=== PATIENT | male | born 1975 | race Caucasian/White ===

== ENCOUNTER 2020-12-05 17:55 | Emergency (ER) | payer BC ==
[2020-12-05 18:09] VITALS: BP 129/85; PULSE 68; TEMP 98.3; BMI 30.1
[2020-12-05] MEDS ORDERED: RABIES IMMUNE GLOBULIN 300 UNITS/1 ML VIAL IM ONE (18:09)
[2020-12-05] MEDS ORDERED: RABIES VACCINE (PCEC)/PF 2.5 UNIT/VIAL IM ONE ×2 (18:14→18:16)
[2020-12-05] MEDS ORDERED: RABIES IMMUNE GLOBULIN 300 UNITS/1 ML VIAL ONE (18:17)
== END 2020-12-05 19:00 | disposition home or self-care (01) ==
LOC: FER 17:55
PROC: 3E0234Z Introduction of Serum, Toxoid and Vaccine into Muscle, Percutaneous Approach (ICD-10-PCS; principal; 2020-12-05)
PROC: 3E0234Z Introduction of Serum, Toxoid and Vaccine into Muscle, Percutaneous Approach (ICD-10-PCS; 2020-12-05)
DX: S71.152A Open bite, left thigh, initial encounter (principal); Z29.14 Encounter for prophylactic rabies immune globulin; Z23 Encounter for immunization
CPT/HCPCS: 90375; 90675; 99284-25

== ENCOUNTER 2020-12-08 19:43 | Emergency (ER) | payer BC ==
[2020-12-08 19:51] VITALS: BP 127/87; PULSE 90; TEMP 98.8; BMI 30.1
[2020-12-08] MEDS ORDERED: RABIES VACCINE (PCEC)/PF 2.5 UNIT/VIAL IM ONE ×2 (19:51→19:58)
== END 2020-12-08 20:07 | disposition home or self-care (01) ==
LOC: FER 19:43
PROC: 3E0234Z Introduction of Serum, Toxoid and Vaccine into Muscle, Percutaneous Approach (ICD-10-PCS; principal; 2020-12-08)
DX: Z29.14 Encounter for prophylactic rabies immune globulin (principal)
CPT/HCPCS: 90675; 99283-25

== ENCOUNTER 2020-12-12 20:09 | Emergency (ER) | payer BC ==
[2020-12-12 20:17] VITALS: BP 132/87; PULSE 88; TEMP 99.1; BMI 30.1
[2020-12-12] MEDS ORDERED: RABIES VACCINE (PCEC)/PF 2.5 UNIT/VIAL IM ONE ×2 (20:23→20:24)
== END 2020-12-12 20:32 | disposition home or self-care (01) ==
LOC: FER 20:09
PROC: 3E0234Z Introduction of Serum, Toxoid and Vaccine into Muscle, Percutaneous Approach (ICD-10-PCS; principal; 2020-12-12)
DX: Z29.14 Encounter for prophylactic rabies immune globulin (principal)
CPT/HCPCS: 90675; 99284-25

== ENCOUNTER 2020-12-15 21:20 | Emergency (ER) | payer BC ==
[2020-12-15] MEDS ORDERED: RABIES VACCINE (PCEC)/PF 2.5 UNIT/VIAL IM ONE ×2 (21:24→21:31)
[2020-12-15 21:29] VITALS: BP 138/90; PULSE 87; TEMP 98.8; BMI 30.1
== END 2020-12-15 21:30 | disposition home or self-care (01) ==
LOC: FER 21:20
DX: Z29.14 Encounter for prophylactic rabies immune globulin (principal)
CPT/HCPCS: 99281-25

== ENCOUNTER 2020-12-19 20:47 | Emergency (ER) | payer BC ==
[2020-12-19 20:53] VITALS: BP 130/84; PULSE 82; TEMP 98; BMI 30.1
[2020-12-19] MEDS ORDERED: RABIES VACCINE (PCEC)/PF 2.5 UNIT/VIAL IM ONE ×2 (20:56)
== END 2020-12-19 21:11 | disposition home or self-care (01) ==
LOC: FER 20:47
PROC: 3E023GC Introduction of Other Therapeutic Substance into Muscle, Percutaneous Approach (ICD-10-PCS; principal; 2020-12-19)
DX: Z20.3 Contact with and (suspected) exposure to rabies (principal)
CPT/HCPCS: 90675; 99283-25